=== PATIENT | female | born 1980 | race Caucasian/White ===

== ENCOUNTER 2016-11-14 10:18 | Day surgery (SDC) | payer OTHER ==
[~2016-11-14] VITALS: Ht 164.5 cm; Wt 98.7 kg
[~2016-11-14 10:18] MED LIST: ACETAMINOPHEN325 MG PO; ALEVE220 MG PO; BENAZEPRIL HCL10 MG PO; HYDROCHLOROTHIA25 MG PO
--- NOTE | 2016-11-14 11:03 | NUR ---
PRE OP INSTRUCTIONS GIVEN AND SAFETY ISSUES DISCUSSED PT AND SPOUSE HAD QUESTIONS ANSWERED PT CONFIRMED PROCEDURE PT VERIFIED SIGNATURE PT MARKED SITE PT USING PHONE AND WATCHING TV
--- NOTE | 2016-11-14 11:05 | NUR ---
PT STATED RARELY USES INHALER ASTHMA IS ONLY EXERCISE INDUCED REFUSED BREATHING RX
--- NOTE | 2016-11-14 14:52 | NUR ---
1420- PT TX TO POH, CRYING, UPSET, ANESTHESIA IN TO TALK TO PT, SEEMED TO CALM HER DOWN. IV PLACED R HAND FOR [place] BLOCK, ANTIBIOTIC AVAIL FOR INFUSION, ALLERGY TO PCN AND AMOXICILLIN. WITH PT IN POH. CONFIRMS PROCEDURE, SITE MARKED BY DR AND PT.
--- NOTE | 2016-11-14 14:56 | NUR ---
1445- REPORT TO TYE -- PERM RELIEF
--- NOTE | 2016-11-14 15:42 | Preoperative Progress Note ---
Late Entry Date/Time Late Entry Date and Time LATE ENTRY Date of visit: 11/14/16 Time of visit: 2:45 pm Preop Note Details Current Status: No Changes Physical Exam: No Changes Necessity: Still desired/necessary
--- NOTE | 2016-11-14 15:47 | NUR ---
rec'd FROM OR; SPONT RESP. AWAKE AND AWARE. COMFORTABLE. CMS=GOOD.
--- NOTE | 2016-11-14 15:47 | NUR ---
1528-- RELIEF AT THE END OF SHIFT-- REPORT FROM JA- COUNTS ALREADY DONE, DRESSINGS DISPENCED, TX TO PACU PT AWAKE, TALKING, REPORT TO LFB
--- NOTE | 2016-11-14 15:48 | Provider's Discharge Care Plan ---
Problem, Goal, Plan Problem List 1. Ganglion cyst of dorsum of right wrist Goals: Improve function, Prevent disease progress, decrease pain Instructions: Follow up as directed, Increase activity level, Take meds as directed, call for signs of infection
--- NOTE | 2016-11-14 16:13 | NUR ---
PT RETURNED FROM PACU RIGHT HAND ELEVATE ICE TO WRIST CAP REFILL LESS THAN 3 SEC DRESSING DRY AND INTACT PT STATEDS WRIST IS COMFORTABLE
--- NOTE | 2016-11-14 16:40 | NUR ---
PT HAS REMAINED COMFORTABLE UP TO BR VOIDED SPONTANOUSLY ASKING TO GO HOME REVIEWED DISCHARGE INSTRUCTIONS VERBAL AND WRITTEN PT AND SPOUSE EXPRESSED UNDERSTANDING PT VERBALIZED WHAT TO DO WITH DRESSING
--- NOTE | 2016-11-14 17:10 | NUR ---
PT DISCHARGED PER WC ACCOMPANIED BY SPOUSE
--- NOTE | 2016-11-14 20:59 | OPERATIVE REPORT ---
DATE OF SURGERY: 11/14/2016 SURGEON: Kamaljit Meneses MD PREOPERATIVE DIAGNOSIS: 1. Right dorsal wrist ganglion cyst POSTOPERATIVE DIAGNOSIS: 1. Right dorsal wrist ganglion cyst PROCEDURE PERFORMED: 1. Excision right dorsal wrist ganglion cyst ANESTHESIA: [place] block with sedation. ESTIMATED BLOOD LOSS: Minimal. TOURNIQUET TIME: 38 minutes at 250 mmHg, including prior to surgery for [place] block purposes. FLUIDS: Blood replacement: IV crystalloid fluids only. COMPLICATIONS: None apparent. CONDITION: The patient leaving the operating room stable and satisfactory. PATHOLOGY SPECIMEN: There was no specimen sent of the cyst, appeared pathognomonic for a ganglion cyst and was felt highly unlikely to represent any other pathology that would change treatment. 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 The pain is accompanied by swelling and decreased range of motion, especially in dorsiflexion. It has become constantly painful and occasionally severely painful. She desires to decrease the pain and increase the function and is willing to accept the risks of infection, recurrence, nerve damage, tendon injury, and others with excision, recognizing that other approaches such as slamming it with a heavy book, aspirating it and injecting cortisone, etc., are unlikely to provide lasting relief. She was seen and examined in the preoperative holding area and denied any interval change in her medical conditions and she was seen in clinic on 11/09/2016. Her site was marked with my initials and her consent. The anesthesiologist had already placed the IV for the planned [place] block. Postoperative plan: The patient will leave the dressing on for 3 days. She may then remove the dressing, but she will leave the Steri-Strips on. She may wash with soap and water, blot dry, but not scrub or immerse until she is seen in clinic and cleared for that. She may otherwise advance her activities as tolerated as long as she is keeping the wound clean. She should call or return sooner for any signs of infection. As she has upper extremity surgery and did not have a general anesthetic, thromboembolic prophylaxis is not indicated. She may return to work tomorrow. [id number] analgesics should be adequate. SURGICAL TECHNIQUE: The patient was identified in the preoperative holding area as described above, seen and interviewed by myself and anesthesia, and brought back to the operating room, where the [place] block was placed and sedation was provided. The arm was then circumferentially prepped from the tourniquet to the tips of the fingers in a circumferential sterile fashion with ChloraPrep. Surgical pause was completed, confirming the correct patient and the patient had received 2 g of cefazolin intravenously prior to tourniquet inflation. We confirmed the patient's identity, operative site and the fact that thromboembolic prophylaxis was not indicated. Everyone in the room including surgical nursing, anesthetic team members were in agreement that we should proceed. A dorsal incision was made longitudinally over the sessile mass on the dorsum of her wrist. It was carried sharply through skin and dermis. Subcutaneous tissues were divided using tenotomy scissors, taking care to preserve sensory nerves and cauterize any traversing veins. The mass was identified under the flexor pollicis longus tendon and the extensor indices proprius and extensor digitorum and comminus tendons. These tendons were carefully retracted and the mass carefully developed distally, radially, ulnarly and proximally and seemed to emanate from the dorsal wrist capsule. The mass was fully excised and the capsule windowed to allow free flow of joint fluid in and out of the joint into the soft tissues dorsally and hopefully prevent recurrence of the ganglion cyst. Wounds were copiously irrigated, infiltrated with 0.25% Marcaine with epinephrine and closed in layers using [id number] 2-0 Vicryl for the fascia and retinaculum , inverted undyed 2-0 Vicryl for the subdermal stitch and 3-0 resorbable monofilament V-Loc for the subcuticular stitch. Skin was further closed with Steri-Strips and Dermabond. Sterile dressing was applied and an Raheel wrap for swelling. The patient was then draped and reversed from anesthesia and brought to recovery room in stable and satisfactory condition having tolerated the procedure well without apparent complication.
--- NOTE | 2016-11-14 20:59 | OPERATIVE REPORT ---
DATE OF SURGERY: 11/14/2016 SURGEON: Kamaljit Mneeses MD PREOPERATIVE DIAGNOSIS: 1. Right dorsal wrist ganglion cyst POSTOPERATIVE DIAGNOSIS: 1. Right dorsal wrist ganglion cyst PROCEDURE PERFORMED: 1. Excision right dorsal wrist ganglion cyst ANESTHESIA: [place] block with sedation. ESTIMATED BLOOD LOSS: Minimal. TOURNIQUET TIME: 38 minutes at 250 mmHg, including prior to surgery for [place] block purposes. FLUIDS: Blood replacement: IV crystalloid fluids only. COMPLICATIONS: None apparent. CONDITION: The patient leaving the operating room stable and satisfactory. PATHOLOGY SPECIMEN: There was no specimen sent of the cyst, appeared pathognomonic for a ganglion cyst and was felt highly unlikely to represent any other pathology that would change treatment. 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 The pain is accompanied by swelling and decreased range of motion, especially in dorsiflexion. It has become constantly painful and occasionally severely painful. She desires to decrease the pain and increase the function and is willing to accept the risks of infection, recurrence, nerve damage, tendon injury, and others with excision, recognizing that other approaches such as slamming it with a heavy book, aspirating it and injecting cortisone, etc., are unlikely to provide lasting relief. She was seen and examined in the preoperative holding area and denied any interval change in her medical conditions and she was seen in clinic on 11/09/2016. Her site was marked with my initials and her consent. The anesthesiologist had already placed the IV for the planned [place] block. Postoperative plan: The patient will leave the dressing on for 3 days. She may then remove the dressing, but she will leave the Steri-Strips on. She may wash with soap and water, blot dry, but not scrub or immerse until she is seen in clinic and cleared for that. She may otherwise advance her activities as tolerated as long as she is keeping the wound clean. She should call or return sooner for any signs of infection. As she has upper extremity surgery and did not have a general anesthetic, thromboembolic prophylaxis is not indicated. She may return to work tomorrow. [id number] analgesics should be adequate. SURGICAL TECHNIQUE: The patient was identified in the preoperative holding area as described above, seen and interviewed by myself and anesthesia, and brought back to the operating room, where the [place] block was placed and sedation was provided. The arm was then circumferentially prepped from the tourniquet to the tips of the fingers in a circumferential sterile fashion with ChloraPrep. Surgical pause was completed, confirming the correct patient and the patient had received 2 g of cefazolin intravenously prior to tourniquet inflation. We confirmed the patient's identity, operative site and the fact that thromboembolic prophylaxis was not indicated. Everyone in the room including surgical nursing, anesthetic team members were in agreement that we should proceed. A dorsal incision was made longitudinally over the sessile mass on the dorsum of her wrist. It was carried sharply through skin and dermis. Subcutaneous tissues were divided using tenotomy scissors, taking care to preserve sensory nerves and cauterize any traversing veins. The mass was identified under the flexor pollicis longus tendon and the extensor indices proprius and extensor digitorum and comminus tendons. These tendons were carefully retracted and the mass carefully developed distally, radially, ulnarly and proximally and seemed to emanate from the dorsal wrist capsule. The mass was fully excised and the capsule windowed to allow free flow of joint fluid in and out of the joint into the soft tissues dorsally and hopefully prevent recurrence of the ganglion cyst. Wounds were copiously irrigated, infiltrated with 0.25% Marcaine with epinephrine and closed in layers using [id number] 2-0 Vicryl for the fascia and retinaculum , inverted undyed 2-0 Vicryl for the subdermal stitch and 3-0 resorbable monofilament V-Loc for the subcuticular stitch. Skin was further closed with Steri-Strips and Dermabond. Sterile dressing was applied and an Raheel wrap for swelling. The patient was then draped and reversed from anesthesia and brought to recovery room in stable and satisfactory condition having tolerated the procedure well without apparent complication.
== END 2016-11-14 16:50 | disposition home or self-care (01) ==
LOC: OR SRH 10:18 → SCU SRH 10:20 → OR SRH 12:00
PROVIDERS: Orthopaedic Surgery
PROC: 0RBN0ZZ Excision of Right Wrist Joint, Open Approach (ICD-10-PCS; principal; 2016-11-14 12:00)
DX: M67.431 Ganglion, right wrist (principal); I10 Essential (primary) hypertension; Z72.0 Tobacco use
CPT/HCPCS: 29229; 29240; 50004; 60001; 80011; 82708; 83711; 84038; 84044; 93070

== ENCOUNTER 2016-11-15 23:17 | Emergency (ER) | payer OTHER ==
--- NOTE | 2016-11-16 01:13 | ED NURSING NOTES ---
Clinical Report - Nurses [facility] [address] [place] [address] 11/15/2016 23:17 Patient: ARACELIS KELLEY TRIAGE Triage time 23:Nov 15 2016. Acuity: LEVEL 3. Chief Complaint: (Hypertension). SEPSIS SCREEN: Sepsis Screen: negative. Negative (no infection suspected/documented). BRIAN COMA SCORE: [place] Coma Scale: 15- eyes open spontaneously (4); best verbal response- oriented x 4 (5); best motor response- obeys commands (6). --23:27 Tanya Navarro 23:21 11/15/16. BP: 146/85. HR: 65. RR: 20. O2 saturation: 96% on room air. Temp: 98.5 F. Pain level now: 10/26. --23:27 Tanya Navarro. Weight: 95 kg stated. Height/Length: 64 inches Per Patient. BMI: 36. --23:26 Tanya Navarro. Medications HCTZ. --23:24 Tanya Navarro Benazepril HCl Oral. --23:24 Tanya Navarro. Medication/allergy information source: the patient. --23:27 Tanya Navarro. Allergies Penicillin. --23:24 Tanya Navarro Amoxicillin. --23:25 Tanya Navarro. History Arrived by EMS. Historian: patient. Unaccompanied. Primary physician (none). This started just prior to arrival. ( Patient has an at home blood pressure machine which she checked her pressure and found it to be elevated, around 161/100, EMS report that the patients blood pressure was elevated upon their arrival. Patient reports that she was anxious regarding her blood pressure so she called EMS. She also had a ganglion cyst removed recently and states she has some welling and pain in her hand.). Treatment CARE GIVER: See EMS report. EMS treatment CARE GIVER verbally communicated and report reviewed. See report. BP: 160 / 1 00. PAST MEDICAL HX: Immunizations: up-to-date. Last normal menstrual period- 4 days ago. SOCIAL HX: Heavy tobacco smoker (cigarette)- 1 pack per day. Occasional alcohol use. No drug use. No infectious disease exposure. ABUSE ASSESSMENT: No report of abuse. FALL RISK ASSESSMENT: Fall risk assessment completed. No fall risk identified. NUTRITIONAL RISK ASSESSMENT: The nutritional risk assessment revealed no deficiencies. FUNCTIONAL ASSESSMENT: Functional assessment: no impairments noted. LEARNING NEEDS ASSESSMENT: The learning needs assessment revealed no barriers. SKIN INTEGRITY ASSESSMENT: Skin integrity risk assessment completed. No skin integrity risk identified. --23:27 Tanya Navarro. PROBLEMS: Excercise induced asthma . Hypertension. Ganglion Cyst. --23:25 Tanya Navarro. ADDITIONAL SURGERIES: Ganglion cyst removal . Tonsillectomy. Tubal Ligation. --23:25 Tanya Navarro. Interventions ID band on patient. To treatment room. --23:27 Tanya Navarro. PHYSICAL ASSESSMENT To room via stretcher. GENERAL / NEURO / PSYCH: Alert. Oriented X 4. Appears in no acute distress. HEENT: Pupils equal, round and reactive to light. No facial asymmetry noted. Mucous membranes are pink. RESPIRATORY: Respirations not labored. CVS: Normal sinus rhythm noted. GI / : Abdomen soft and nontender. EXTREMITIES: ( Right hand wrapped in DONAL wrap, moderate swelling present in fingers, DONAL wrap loosened). SKIN: Skin is warm and dry. --23:28 Tanya Navarro. NURSING PROGRESS NOTES Pulse oximeter and NIBP monitor placed on patient; monitor alarms on. Warming measures: blanket applied. Reassurance given to the patient. Two patient identifiers checked. Call light placed in reach. Side rails up x 1. Bed placed in lowest position. Brakes of bed on. Patient ready for evaluation- chart flagged and ED physician notified. --23:28 Tanya Navarro 23:28 11/15/2016 Site #1 started via IV in the left antecubital space with an 20g angiocath, with aseptic technique and good blood return; one attempt. Blood drawn: rainbow set. Labeled in the presence of the patient and sent to the lab. Saline lock flushed with 10 mL saline. --23:29 Tanya Navarro 00:08 11/16/16. BP: 130/81. HR: 61. RR: 20. O2 saturation: 95% on room air. Pain level now: 01/26. --00:09 Tanya Navarro 00:50 11/16/16. RESPIRATORY: No respiratory distress. CVS: Normal sinus rhythm noted. SKIN: Skin is warm and dry. Skin color within normal limits. ( Patient has no complaints at this time. Patient updated about estimated wait and is understanding with no complaints at this time.). --01:52 Tanya Navarro. DISPOSITION / DISCHARGE 01:11/16/16. BP: 121/69. HR: 67. RR: 20. O2 saturation: 97% on room air. Temp: 98.3 F (oral). Pain level now: 01/26. --01:48 Tanya Navarro 01:00 11/16/2016 Site #1 removed upon discharge. Catheter intact. Bandaid applied. --01:48 Tanya Navarro 01:15 11/16/16. Condition at departure: improved and stable. The goals identified in the patient's plan of care were met. No learning barriers present. Discharge instructions provided and reviewed with the patient. Patient verbalized understanding. Written instructions provided in Bulgarian. ( If you have episode of Hypertension sustained after several readings you may take an additional dose of you HCTZ. Follow up with [facility] for next available appointment. Return to the ER if symptoms worsen.). The patient was discharged by the physician. She was discharged home and accompanied by horticultural services supervisor. She left the Emergency Department ambulatory and via private vehicle. Credit Reporting Clerk driving. FALL RISK ASSESSMENT: Fall risk assessment completed. No fall risk identified. --01:48 Tanya Navarro. Locked/Released at 11/16/2016 1:53 by Tanya Navarro,
--- NOTE | 2016-11-16 01:13 | ED CLINICAL REPORT ---
Clinical Report - Physicians/Mid Levels [facility] [address] [place] [address] 11/15/2016 23:17 Patient: ARACELIS KELLEY Time Seen: 00:29. Arrived- By private vehicle. Historian- patient. HISTORY OF PRESENT ILLNESS Chief Complaint: BLOOD PRESSURE ELEVATED. This started today and is still present but is better now. At its maximum, severity described as moderate. When seen in the E.D., severity described as mild. Modifying factors- (PT states she began to get anxious about her blood pressure, which made it go higher. She states she began to calm down after EMS arrived, which has improved her pressure.). No current or associated symptoms. (Pt has a h/o HTN, and is on benazapril and HCTZ for this.). Similar symptoms previously: Occasionally. Recent medical care: Not recently seen/assessed. REVIEW OF SYSTEMS No fever, sore throat, sinus drainage, nasal congestion or cough. No difficulty breathing, chest pain, abdominal pain, nausea or vomiting. No diarrhea, black stools, bloody stools, chills or difficulty with urination. No abnormal bleeding, skin rash, back pain, calf pain or headache. No blackouts or double vision. No difficulty with ambulation. All systems otherwise negative, except as recorded above. PAST HISTORY Problems: Excercise induced asthma . Hypertension. Ganglion Cyst. Additional Surgeries: Ganglion cyst removal . Tonsillectomy. Tubal Ligation. Medications: Benazepril HCl Oral. HCTZ. Allergies: Amoxicillin. Penicillin. SOCIAL HISTORY Smoker- current status unknown. Occasional alcohol use. No drug use. ADDITIONAL NOTES The nursing notes have been reviewed. PHYSICAL EXAM Vital Signs: 11/15/2016 23:21 BP: 146/85. HR: 65. RR: 20. O2 saturation: 96%. Temp: 98.5 F. Pain level now: 3/10. Have been reviewed. Appearance: Alert. No acute distress. Eyes: Pupils equal, round and reactive to light. Eyes normal inspection. ENT: Nose normal. Neck: Normal inspection. CVS: Normal heart rate and rhythm. Heart sounds normal. Pulses normal. Respiratory: No respiratory distress. Breath sounds normal. Abdomen: No visible injury. Soft and nontender. Back: Normal inspection. Skin: Skin warm and dry. Normal skin color. No rash. Normal skin turgor. Extremities: Extremities exhibit normal ROM. No lower extremity edema. Neuro: Oriented X 3. No motor deficit. No sensory deficit. LABS, X-RAYS, AND EKG Pulse Oximetry: 11/15/2016 23:21 O2 saturation: 96%. (FIO2 - room air). Interpretation: normal. PROGRESS AND PROCEDURES Course of Care: Pt's blood pressure was much improved upon arrival in the ED, and continued to descend into the normal range. I did d/w pt what signs or sx should prompt her to come to the ED for elevated BP. No emergent intervention or work-up was indicated, as pt's BP was normal and pt was asymptomatic. Patient counseled in person regarding the patient's stable condition, diagnosis and need for follow-up. Concerns were addressed. Old medical records reviewed. Disposition: Discharged. Condition: stable and improved. CLINICAL IMPRESSION Anxiety reaction. Essential hypertension (with acute exacerbation). INSTRUCTIONS (If you have an episode of high blood pressure at home that is sustained for several readings, you may try taking a dose of your HCTZ. If you develop chest pain, shortness of breath, severe headache, or changes in vision, along with a very high blood pressure reading, you should return to the emergency department without delay.). Warnings: GENERAL WARNINGS: Return or contact your physician immediately if your condition worsens or changes unexpectedly, if not improving as expected, or if other problems arise. Your Current Medications: CONTINUE TAKING THE FOLLOWING MEDICATIONS: Benazepril HCl Oral. HCTZ*. Understanding of the discharge instructions verbalized by patient. Follow-up with: [facility], , , [address], , [place], [id number] Follow up. Call for the next available appointment. Reason for referral: Establish care. (Electronically signed by Nika Hernandez MD 11/23/2016 9:50)
--- NOTE | 2016-11-16 01:13 | ED CLINICAL REPORT ---
Clinical Report - Physicians/Mid Levels [facility] [address] [place] [address] 11/15/2016 23:17 Patient: ARACELIS KELLEY Time Seen: 00:29. Arrived- By private vehicle. Historian- patient. HISTORY OF PRESENT ILLNESS Chief Complaint: BLOOD PRESSURE ELEVATED. This started today and is still present but is better now. At its maximum, severity described as moderate. When seen in the E.D., severity described as mild. Modifying factors- (PT states she began to get anxious about her blood pressure, which made it go higher. She states she began to calm down after EMS arrived, which has improved her pressure.). No current or associated symptoms. (Pt has a h/o HTN, and is on benazapril and HCTZ for this.). Similar symptoms previously: Occasionally. Recent medical care: Not recently seen/assessed. REVIEW OF SYSTEMS No fever, sore throat, sinus drainage, nasal congestion or cough. No difficulty breathing, chest pain, abdominal pain, nausea or vomiting. No diarrhea, black stools, bloody stools, chills or difficulty with urination. No abnormal bleeding, skin rash, back pain, calf pain or headache. No blackouts or double vision. No difficulty with ambulation. All systems otherwise negative, except as recorded above. PAST HISTORY Problems: Excercise induced asthma . Hypertension. Ganglion Cyst. Additional Surgeries: Ganglion cyst removal . Tonsillectomy. Tubal Ligation. Medications: Benazepril HCl Oral. HCTZ. Allergies: Amoxicillin. Penicillin. SOCIAL HISTORY Smoker- current status unknown. Occasional alcohol use. No drug use. ADDITIONAL NOTES The nursing notes have been reviewed. PHYSICAL EXAM Vital Signs: 11/15/2016 23:21 BP: 146/85. HR: 65. RR: 20. O2 saturation: 96%. Temp: 98.5 F. Pain level now: 3/10. Have been reviewed. Appearance: Alert. No acute distress. Eyes: Pupils equal, round and reactive to light. Eyes normal inspection. ENT: Nose normal. Neck: Normal inspection. CVS: Normal heart rate and rhythm. Heart sounds normal. Pulses normal. Respiratory: No respiratory distress. Breath sounds normal. Abdomen: No visible injury. Soft and nontender. Back: Normal inspection. Skin: Skin warm and dry. Normal skin color. No rash. Normal skin turgor. Extremities: Extremities exhibit normal ROM. No lower extremity edema. Neuro: Oriented X 3. No motor deficit. No sensory deficit. LABS, X-RAYS, AND EKG Pulse Oximetry: 11/15/2016 23:21 O2 saturation: 96%. (FIO2 - room air). Interpretation: normal. PROGRESS AND PROCEDURES Course of Care: Pt's blood pressure was much improved upon arrival in the ED, and continued to descend into the normal range. I did d/w pt what signs or sx should prompt her to come to the ED for elevated BP. No emergent intervention or work-up was indicated, as pt's BP was normal and pt was asymptomatic. Patient counseled in person regarding the patient's stable condition, diagnosis and need for follow-up. Concerns were addressed. Old medical records reviewed. Disposition: Discharged. Condition: stable and improved. CLINICAL IMPRESSION Anxiety reaction. Essential hypertension (with acute exacerbation). INSTRUCTIONS (If you have an episode of high blood pressure at home that is sustained for several readings, you may try taking a dose of your HCTZ. If you develop chest pain, shortness of breath, severe headache, or changes in vision, along with a very high blood pressure reading, you should return to the emergency department without delay.). Warnings: GENERAL WARNINGS: Return or contact your physician immediately if your condition worsens or changes unexpectedly, if not improving as expected, or if other problems arise. Your Current Medications: CONTINUE TAKING THE FOLLOWING MEDICATIONS: Benazepril HCl Oral. HCTZ*. Understanding of the discharge instructions verbalized by patient. Follow-up with: [facility], , , [address], , [place], [id number] Follow up. Call for the next available appointment. Reason for referral: Establish care. (Electronically signed by Nika Hernandez MD 11/23/2016 9:50)
--- NOTE | 2016-11-16 01:13 | ED NURSING NOTES ---
Clinical Report - Nurses [facility] [address] [place] [address] 11/15/2016 23:17 Patient: ARACELIS KELLEY TRIAGE Triage time 23:Nov 15 2016. Acuity: LEVEL 3. Chief Complaint: (Hypertension). SEPSIS SCREEN: Sepsis Screen: negative. Negative (no infection suspected/documented). BRIAN COMA SCORE: [place] Coma Scale: 15- eyes open spontaneously (4); best verbal response- oriented x 4 (5); best motor response- obeys commands (6). --23:27 Tanya Navarro 23:21 11/15/16. BP: 146/85. HR: 65. RR: 20. O2 saturation: 96% on room air. Temp: 98.5 F. Pain level now: 10/26. --23:27 Tanya Navarro. Weight: 95 kg stated. Height/Length: 64 inches Per Patient. BMI: 36. --23:26 Tanya Navarro. Medications HCTZ. --23:24 Tanya Navarro Benazepril HCl Oral. --23:24 Tanya Navarro. Medication/allergy information source: the patient. --23:27 Tanya Navarro. Allergies Penicillin. --23:24 Tanya Navarro Amoxicillin. --23:25 Tanya Navarro. History Arrived by EMS. Historian: patient. Unaccompanied. Primary physician (none). This started just prior to arrival. ( Patient has an at home blood pressure machine which she checked her pressure and found it to be elevated, around 161/100, EMS report that the patients blood pressure was elevated upon their arrival. Patient reports that she was anxious regarding her blood pressure so she called EMS. She also had a ganglion cyst removed recently and states she has some welling and pain in her hand.). 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 EMS treatment LOZENGE DOUGH MIXER verbally communicated and report reviewed. See report. BP: 160 / 1 00. PAST MEDICAL HX: Immunizations: up-to-date. Last normal menstrual period- 4 days ago. SOCIAL HX: Heavy tobacco smoker (cigarette)- 1 pack per day. Occasional alcohol use. No drug use. No infectious disease exposure. ABUSE ASSESSMENT: No report of abuse. FALL RISK ASSESSMENT: Fall risk assessment completed. No fall risk identified. NUTRITIONAL RISK ASSESSMENT: The nutritional risk assessment revealed no deficiencies. FUNCTIONAL ASSESSMENT: Functional assessment: no impairments noted. LEARNING NEEDS ASSESSMENT: The learning needs assessment revealed no barriers. SKIN INTEGRITY ASSESSMENT: Skin integrity risk assessment completed. No skin integrity risk identified. --23:27 Tanya Navarro. PROBLEMS: Excercise induced asthma . Hypertension. Ganglion Cyst. --23:25 Tanya Navarro. ADDITIONAL SURGERIES: Ganglion cyst removal . Tonsillectomy. Tubal Ligation. --23:25 Tanya Navarro. Interventions ID band on patient. To treatment room. --23:27 Tanya Navarro. PHYSICAL ASSESSMENT To room via stretcher. GENERAL / NEURO / PSYCH: Alert. Oriented X 4. Appears in no acute distress. HEENT: Pupils equal, round and reactive to light. No facial asymmetry noted. Mucous membranes are pink. RESPIRATORY: Respirations not labored. CVS: Normal sinus rhythm noted. GI / : Abdomen soft and nontender. EXTREMITIES: ( Right hand wrapped in DONAL wrap, moderate swelling present in fingers, DONAL wrap loosened). SKIN: Skin is warm and dry. --23:28 Tanya Navarro. NURSING PROGRESS NOTES Pulse oximeter and NIBP monitor placed on patient; monitor alarms on. Warming measures: blanket applied. Reassurance given to the patient. Two patient identifiers checked. Call light placed in reach. Side rails up x 1. Bed placed in lowest position. Brakes of bed on. Patient ready for evaluation- chart flagged and ED physician notified. --23:28 Tanya Navarro 23:28 11/15/2016 Site #1 started via IV in the left antecubital space with an 20g angiocath, with aseptic technique and good blood return; one attempt. Blood drawn: rainbow set. Labeled in the presence of the patient and sent to the lab. Saline lock flushed with 10 mL saline. --23:29 Tanya Navarro 00:08 11/16/16. BP: 130/81. HR: 61. RR: 20. O2 saturation: 95% on room air. Pain level now: 01/26. --00:09 Tanya Navarro 00:50 11/16/16. RESPIRATORY: No respiratory distress. CVS: Normal sinus rhythm noted. SKIN: Skin is warm and dry. Skin color within normal limits. ( Patient has no complaints at this time. Patient updated about estimated wait and is understanding with no complaints at this time.). --01:52 Tanya Navarro. DISPOSITION / DISCHARGE 01:11/16/16. BP: 121/69. HR: 67. RR: 20. O2 saturation: 97% on room air. Temp: 98.3 F (oral). Pain level now: 01/26. --01:48 Tanya Navarro 01:00 11/16/2016 Site #1 removed upon discharge. Catheter intact. Bandaid applied. --01:48 Tanya Navarro 01:15 11/16/16. Condition at departure: improved and stable. The goals identified in the patient's plan of care were met. No learning barriers present. Discharge instructions provided and reviewed with the patient. Patient verbalized understanding. Written instructions provided in Welsh. ( If you have episode of Hypertension sustained after several readings you may take an additional dose of you HCTZ. Follow up with [facility] for next available appointment. Return to the ER if symptoms worsen.). The patient was discharged by the physician. She was discharged home and accompanied by hat lining blocker. She left the Emergency Department ambulatory and via private vehicle. Dietitian Teaching driving. FALL RISK ASSESSMENT: Fall risk assessment completed. No fall risk identified. --01:48 Tanya Navarro. Locked/Released at 11/16/2016 1:53 by Tanya Navarro,
--- NOTE | 2016-11-23 09:50 | ED MAR SUMMARY ---
..... Medication Administration Record Located Within [facility] [address], [place] [id number] Patient: ARACELIS KELLEY Visit ID: [id number] 36y, F Weight: 95.0 kg Height/Length: 64 in BMI: 36 ALLERGIES: Amoxicillin, Penicillin
--- NOTE | 2016-11-23 09:50 | ED MED RECONCILIATION SUMMARY ---
Patient: FELIX KELLEYHANIE Darlin Medication Reconciliation Report [facility] VisitID: [id number] [address] [place] [address] 36y, F Registration Date/Time: 11/15/2016 Weight: 95 kg Height/Length: 64 in. BMI: 36.0 ALLERGIES: Amoxicillin, Penicillin The patient's Home Medications are listed below: CONTINUE TAKING THE FOLLOWING MEDICATIONS: Benazepril HCl Oral HCTZ The source(s) of the original Home Medication information: patient The following Medications were given to the patient in the Emergency Department: None. The following Medications were prescribed to the patient: None.
--- NOTE | 2016-11-23 09:50 | ED DISCHARGE INSTRUCTIONS ---
Patient: ARACELIS KELLEY General Instructions [facility] VisitID: [id number] [address] [place] [address] 36y, F Registration Date/Time: 11/15/2016 Anxiety reaction. Essential hypertension (with acute exacerbation). INSTRUCTIONS (If you have an episode of high blood pressure at home that is sustained for several readings, you may try taking a dose of your HCTZ. If you develop chest pain, shortness of breath, severe headache, or changes in vision, along with a very high blood pressure reading, you should return to the emergency department without delay.). Warnings: GENERAL WARNINGS: Return or contact your physician immediately if your condition worsens or changes unexpectedly, if not improving as expected, or if other problems arise. Your Current Medications: CONTINUE TAKING THE FOLLOWING MEDICATIONS: Benazepril HCl Oral. HCTZ*. Understanding of the discharge instructions verbalized by patient. Follow-up with: [facility], , , [address], [place], [address] Follow up. Call for the next available appointment. Reason for referral: Establish care. ADDITIONAL INFORMATION Stress Reaction Anxiety is the feeling we all get when we think something bad might happen. It is a normal response to stress and usually causes only a mild reaction. When anxiety becomes more severe, emotions may interfere with daily life. In some cases, you may not even be aware of what it is youre anxious about! During an anxiety reaction, you may feel like you are helpless, nervous, depressed or irritable. Your body may show signs of anxiety in many ways. You may experience dry mouth, shakiness, dizziness, weakness, trouble breathing, chest pressure, headache, nausea, diarrhea, tiredness, inability to sleep or sexual problems. Home Care: 1) Try to locate the sources of stress in your life. They may not be obvious! These may include: -- Daily hassles of life which pile up (traffic jams, missed appointments, car troubles, etc.) -- Major life changes, both good (new baby, job promotion) and bad (loss of job, loss of loved one) -- Overload: feeling that you have too many responsibilities and can't take care of all of them at once -- Feeling helpless, feeling that your problems are beyond what youre able to solve 2) Notice how your body reacts to stress. Learn to listen to your body signals. This will help you take action before the stress becomes severe. 3) When you can, do something about the source of your stress. (Avoid hassles, limit the amount of change that happens in your life at one time and take a break when you feel overloaded). 4) Unfortunately, many stressful situations cannot be avoided. It is necessary to learn HOW TO MANAGE STRESS better. There are many proven methods that will reduce your anxiety. These include simple things like exercise, good nutrition and adequate rest. Also, there are certain techniques that are helpful: relaxation and breathing exercises, visualization, biofeedback and meditation. For more information about this, consult your doctor or go to a local bookstore and review the many books and tapes available on this subject. Follow Up If you feel that your anxiety is not responding to self-help measures, contact your doctor or make an appointment with a counselor. Get Prompt Medical Attention if any of the following occur: -- Your symptoms get worse -- Chest pain or trouble breathing -- Severe headache not relieved by rest and mild pain reliever -- Rapid or irregular heartbeat, fainting High Blood Pressure --Established High Blood Pressure (Hypertension) is a chronic disease. The cause is unknown in most cases. It can usually be controlled with lifestyle changes and/or medicines. Symptoms of high blood pressure may include headache, dizziness, visual changes, chest pain and shortness of breath. Sometimes it causes no symptoms at all. However, even if there are no symptoms, untreated high blood pressure increases the risk of heart attack, also known as acute myocardial infarction, or AMI, and stroke. It is a serious health risk and should not be ignored. A normal blood pressure is 120/80 or less. The first (top) number is the "systolic" pressure. The second (bottom) number is the "diastolic" pressure. Hypertension exists when either the top number is 140 or higher, OR the bottom number is 90 or higher on repeated measurements. Home Care: All patients with high blood pressure should do the following to lower their pressure. If you are on medicines, then these methods may reduce or eliminate your need for medicines in the future. Begin a weight loss program if you are overweight. Reduce your salt intake. Avoid high salt foods (olives, pickles, smoked meats, salted potato chips, etc.). Do not add salt to your food at the table. Use only small amounts of salt when cooking. Begin an exercise program. Discuss with your doctor what type of exercise program would be best for you. It doesn't have to be difficult. Even brisk walking for 20 minutes three times a week is a good form of exercise. Avoid medicines which contain heart stimulants. This includes many cold and sinus decongestant pills and sprays as well as diet pills. Check the warnings about hypertension on the label. Stimulants such as amphetamine or cocaine could be lethal for someone with hypertension. Never take these. Limit your caffeine intake or switch to caffeine-free products. Stop smoking. If you are a long-time smoker, this can be hard. Enroll in a stop-smoking program to improve your chance of success. Learning how to handle stress better is an important part of any program to lower blood pressure. Learn about relaxation methods such as meditation, yoga or biofeedback. If medicines were prescribed, take them exactly as directed. Missing doses may cause your blood pressure get out of control. Consider buying an automatic blood pressure machine (available at most pharmacies). Use this to monitor your blood pressure at home and report the results to your doctor. Follow Up: Regular visits to your own physician for blood pressure checks and medicine adjustment is an important part of your care. Make a follow-up appointment as directed by our staff. Get Prompt Medical Attention if any of the following occur: Chest pain or shortness of breath Severe headache Throbbing or rushing sound in the ears Nosebleed Sudden severe abdominal pain Extreme drowsiness, confusion or fainting Dizziness or vertigo (dizziness with spinning sensation) Weakness of an arm or leg or one side of the face Difficulty with speech or vision You have been given the following additional information: Anxiety Reaction Hypertension, Established (Electronically signed by Nika Hernandez MD 11/23/2016 9:50)
--- NOTE | 2016-11-23 09:50 | ED MAR SUMMARY ---
..... Medication Administration Record [facility] [address], [place] [id number] Patient: ARACELIS KELLEY Visit ID: [id number] 36y, F Weight: 95.0 kg Height/Length: 64 in BMI: 36 ALLERGIES: Amoxicillin, Penicillin
--- NOTE | 2016-11-23 09:50 | ED MED RECONCILIATION SUMMARY ---
Patient: FELIX KELLEYHANIE Darlin Medication Reconciliation Report [facility] VisitID: [id number] [address] [place] [address] 36y, F Registration Date/Time: 11/15/2016 Weight: 95 kg Height/Length: 64 in. BMI: 36.0 ALLERGIES: Amoxicillin, Penicillin The patient's Home Medications are listed below: CONTINUE TAKING THE FOLLOWING MEDICATIONS: Benazepril HCl Oral HCTZ The source(s) of the original Home Medication information: patient The following Medications were given to the patient in the Emergency Department: None. The following Medications were prescribed to the patient: None.
== END 2016-11-16 01:15 | disposition home or self-care (01) ==
LOC: ED SRH 23:17
DX: F41.1 Generalized anxiety disorder (principal); I10 Essential (primary) hypertension; Z88.1 Allergy status to other antibiotic agents; Z88.0 Allergy status to penicillin